=== PATIENT | male | born 1965 | race Caucasian/White ===

== ENCOUNTER 2020-12-01 15:39 | Emergency (ER) | payer OTHER, SELFPAY ==
--- NOTE | ~2020-12-01 | XR_ITS ---
XR foot RT min 3V DATE: 12/01/2020 16:08 INDICATION: Right heel pain. No injury. TECHNIQUE: 4 views COMPARISON: None FINDINGS: Mild plantar calcaneal enthesopathy. No associated erosive change or periostitis. No fracture, dislocation, periosteal reaction or bone destruction is detected. Mild osteoarthritic change at the first metatarsophalangeal joint and first interphalangeal joint. IMPRESSION: Mild plantar calcaneal enthesopathy Mild osteoarthritis Reviewed, dictated and finalized at location A.
[2020-12-01 15:52] VITALS: BP 135/77; PULSE 89; RESP 16; TEMP 37.3; O2SAT 98
--- NOTE | 2020-12-01 16:49 | ED.GENADULT ---
HPI - General Adult General Chief complaint: Extremity Injury, Lower Stated complaint: Pain in heel of right Foot Time Seen by Provider: 12/01/20 16:42 Source: patient and RN notes reviewed Mode of arrival: ambulatory Limitations: no limitations History of Present Illness HPI narrative: 55-year-old male presents with complaints of right heel pain for the past 3 months. ?Kenny reports increasing over the past month, today being the worst. ?Ibuprofen and shoe inserts without relief. ?Hurts to bear weight. ?No radiation of pain. ?No numbness, tingling, or loss of mobility. ?Exacerbating factor consists of applying weight. ?Denies inability to bear weight. ?Denies discoloration. ?Denies suspect foreign body. ?Denies fever. ?Remains active. ?The patient reports he has not been diagnosed with COVID-19. ?The patient reports he is not waiting for the results of a COVID-19 lab test. ?The patient reports he does not have chills, weakness, or fatigue. ?The patient reports he does not have a new or worsening cough or shortness of breath. ?Denies chest pain. ?The patient reports he does not have any rhinorrhea, congestion, loss of taste or smell, sore throat, nausea, vomiting, abdominal pain, and diarrhea. ?Tolerating po intake well. ?Denies recent traveling. ?Denies concerns for COVID-19 or exposures. ?At this time, the patient is not suspected of having COVID-19. Some parts of this dictation were generated by voice recognition software and may contain typographical and/or grammatical inaccuracies. Related Data Home Medications Medication Instructions Recorded Confirmed lisdexamfetamine [Vyvanse] 60 mg PO DAILY 12/01/20 12/01/20 Allergies Allergy/AdvReac Type Severity Reaction Status Date / Time No Known Allergies Allergy Unknown Verified 12/01/20 16:06 Review of Systems Review of Systems: Narrative: CONSTITUTIONAL: Denies fever, chills, sweats. EYES: Denies visual changes, redness, discharge. ENT: Denies rhinorrhea, congestion, sore throat, otalgia. CARDIOVASCULAR: Denies chest pain, palpitations, edema. RESPIRATORY: Denies dyspnea, wheezing, cough. GASTROINTESTINAL: Denies abdominal pain, nausea, vomiting, diarrhea. SKIN: Denies rash or itching. MUSCULOSKELETAL: Denies acute back pain or myalgia. Complains of right heel pain. NEUROLOGIC: Denies numbness or focal weakness. PSYCHIATRIC: Denies anxiety or depression. All other systems reviewed are negative, except as documented in HPI and below. [facility] Past Medical History Medical History (Updated 12/02/20 @ 00:00 by Genaro Blanc) Attention deficit disorder Surgical History Surgical History (Updated 12/01/20 @ 17:01 by ROSSI Handy) No significant past surgical history Family History Family History (Updated 12/01/20 @ 17:02 by ROSSI Handy) Father Motor vehicle accident 1997 Unknown family medical history Mother Breast cancer Remission Social History Social History (Updated 12/01/20 @ 17:03 by ROSSI Handy) Smoking packs per day: 2 Smoking cigarettes per day: 40.0 Years smoked: 37 Smoking pack-years: 74.00 Smoking status: Current every day smoker Tobacco type: cigarettes Second hand tobacco smoke exposure: Yes Alcohol intake: current Substance use: never Substance use type: does not use Living arrangements: with family Occupation/Education: occupation Gender identity (if verbalized by the patient): Male Sexual Orientation (if Verbalized by the Patient): Straight or Heterosexual Comments At time of signature, agree with the nurse past medical, surgical, social, and family history. There is no relevant family history pertinent to the presenting complaint. Exam Narrative: Exam Narrative: GENERAL: This is a well-nourished, well-developed patient, in no apparent distress. Ambulates with a limp favoring the right lower extremity. HEAD: Normocephalic, atraumatic. EYES:
== END 2020-12-01 17:15 | disposition home or self-care (01) ==
PROVIDERS: Emergency Provider Nurse Practitioner Family; PCP Hospitalist
DX: M72.2 Plantar fascial fibromatosis (principal); M19.071 Primary osteoarthritis, right ankle and foot; F17.210 Nicotine dependence, cigarettes, uncomplicated; F98.8 Other specified behavioral and emotional disorders with onset usually occurring in childhood and adolescence
CPT/HCPCS: 73630; 99203; G0463